=== PATIENT | male | born 1945 | race Caucasian/White ===

== ENCOUNTER 2020-05-14 14:27 | Outpatient (CLI) | payer MEDICARE ==
[~2020-05-14 14:27] MED LIST: ASPI-611 PO; CALC-793 PO; CARV3.12 PO; CETI10CA PO; DIPH25TA62 PO; DOCU-28 PO; GLUC100017 PO; MOME17SP BOTHNARES; NITR0.4T51 SL; SENN-25 PO; UBID100C16 PO
== END 2020-05-14 23:59 | disposition home or self-care (01) ==
LOC: RAD 14:27
PROVIDERS: ATTEND Family Medicine
DX: G20 Parkinson's disease (principal); R47.1 Dysarthria and anarthria; R13.12 Dysphagia, oropharyngeal phase; R49.0 Dysphonia
CPT/HCPCS: 74230

== ENCOUNTER 2022-10-05 10:02 | Outpatient (CLI) | payer MEDICARE ==
[~2022-10-05 10:02] MED LIST changes: -MOME17SP BOTHNARES; +MOME17SP5 BOTHNARES
== END 2022-10-05 23:59 | disposition home or self-care (01) ==
LOC: RAD 10:02
PROVIDERS: ATTEND Psychiatry & Neurology Neurology
DX: R94.01 Abnormal electroencephalogram [EEG] (principal); R56.9 Unspecified convulsions
CPT/HCPCS: 95813